=== PATIENT | male | born 1950 | race Caucasian/White ===

== ENCOUNTER 2019-02-24 20:26 | Inpatient (IN) ==
[2019-02-24] MEDS ORDERED: Ondansetron 4 MG/2 ML VIAL IVP PRN (23:42)
[2019-02-24] MEDS ORDERED: Acetaminophen 325 MG TABLET PO PRN (23:42)
[2019-02-24] MEDS ORDERED: Naloxone 0.4 MG/ML INJ IVP PRN (23:42)
[2019-02-24] MEDS ORDERED: DilTIAZem 50 MG in 0.9 % Sodium Chloride 40 ML IVC SCH (23:45)
[2019-02-24] MEDS ORDERED: *HR* Heparin 5,000 UNIT/ML VIAL IVP PRN ×2 (23:48)
[2019-02-24] MEDS ORDERED: *HR* Heparin 5,000 UNIT/ML VIAL IVP ONE (23:48)
[2019-02-25] MEDS ORDERED: 0.9 % Sodium Chloride 1,000 ML IVC ONE (00:42)
[2019-02-25 01:12] LABS: Basophils % 0.6 %; Hemoglobin 11.8 g/dL (12.9-16.9); Immature Granulocytes % 0.4 % (0-4); Lymphocytes # 3.3 K/mcL (0.6-4.6); Lymphocytes % 46.2 %; Mean Corpuscular HGB Conc 32.8 g/dL (31.6-35.5); Mean Corpuscular Hemoglobin 30.5 pg (28.0-33.3); Mean Platelet Volume 9.2 fL (9.4-12.4); Monocytes # 0.4 K/mcL (0.0-1.3); Monocytes % 5.3 %; Neutrophils # 3.4 K/mcL (1.6-8.9); Platelet Count 194 K/mcL (140-400); Red Blood Count 3.87 M/mcL (4.19-5.50); Red Cell Distribution Width 12.5 % (11.5-14.5); Segmented Neutrophils % 47.5 %; White Blood Count 7.1 K/mcL (4.3-11.1)
[2019-02-25 01:25] LABS: Heparin anti-factor XA UFH 0.01 IU/mL (0.30-0.70); INR 1.2; Prothrombin Time 13.1 Seconds (9.4-12.1)
[2019-02-25 01:27] LABS: BUN/Creatinine Ratio 24 (6-26); Blood Urea Nitrogen 24 mg/dL (8-23); Carbon Dioxide 20 mEq/L (23-29); Chloride 105 mEq/L (98-107); Chol/HDL Ratio 6.8 (0-4.9); Cholesterol 115 mg/dL (< 200); Glucose 112 mg/dL (70-105); HDL Cholesterol 17 mg/dL (40-59); LDL Cholesterol,Calculated 41 mg/dL (0-99); Magnesium 1.7 mg/dL (1.6-2.6); Osmolality,Calculated 285 (280-300); Potassium 3.3 mEq/L (3.5-5.1); Sodium 135 mEq/L (136-145); Triglycerides 287 mg/dL (< 150); eGFR For African Americans > 60 (> 60); eGFR For Non-African Americans > 60 (> 60)
[2019-02-25] MEDS: 0.9 % Sodium Chloride 1,000 ML IVC SCH ×2 (01:44→12:45)
[2019-02-25] MEDS: Heparin 25,000 UNIT/250 ML D5W 25,000 UNIT/250 ML IV.SOLN IVC SCH ×2 (01:44→23:35)
[2019-02-25 02:08] LABS: Platelet Estimate Normal (Normal); Reactive Lymphocytes Present (Not Present)
[2019-02-25] MEDS: Doxycycline 100 MG in 0.9 % Sodium Chloride Mini Bag 100 ML IVPB SCH ×2 (06:37→15:50)
[2019-02-25 07:57] LABS: Bilirubin,Urine Negative (Negative); Blood,Urine Negative (Negative); Clarity,Urine Clear (Clear); Color,Urine Yellow (Yellow); Glucose,Urine (UA) Normal (Normal); Ketones,Urine 15 mg/dL (Negative); Leukocyte Esterase,Urine Negative (Negative); Nitrite,Urine Negative (Negative); PH,Urine 5.5 pH Units (5.0-8.0); Protein,Urine Trace mg/dL (Neg-Trace); Specific Gravity,Urine 1.028 (1.010-1.025); Urobilinogen,Urine Normal (Normal)
[2019-02-25] MEDS: cefTRIAXone 1,000 MG in Water for inj. (sterile) 10 ML IVP SCH (08:30)
[2019-02-25 08:37] LABS: Troponin I 0.25 ng/mL (< 0.04)
[2019-02-25 10:12] LABS: Thyroid Stimulating Hormone 1.054 mcIU/mL (0.340-5.600)
[2019-02-25] MEDS: *HR* HYDROcodone/Acet 5/325 mg TABLET PO PRN ×2 (14:00→20:20)
[2019-02-25] MEDS: Nicotine 7 MG PATCH.TD24 TD SCH (20:20)
[2019-02-25] MEDS: Metoprolol 100 MG TABLET PO SCH (20:20)
[2019-02-26] MEDS: Doxycycline 100 MG in 0.9 % Sodium Chloride Mini Bag 100 ML IVPB SCH ×2 (05:48→17:02)
[2019-02-26 06:00] LABS: Basophils % 0.3 %; Eosinophils # 0.1 K/mcL (0.0-0.6); Hematocrit 26.3 % (37.5-50.1); Immature Granulocytes % 0.3 % (0-4); Lymphocytes # 4.1 K/mcL (0.6-4.6); Lymphocytes % 65.1 %; Mean Corpuscular HGB Conc 32.3 g/dL (31.6-35.5); Mean Corpuscular Hemoglobin 30.9 pg (28.0-33.3); Mean Corpuscular Volume 95.6 fL (83.0-100.0); Mean Platelet Volume 9.1 fL (9.4-12.4); Monocytes # 0.4 K/mcL (0.0-1.3); Monocytes % 6.5 %; Neutrophils # 1.7 K/mcL (1.6-8.9); Platelet Count 175 K/mcL (140-400); Red Blood Count 2.75 M/mcL (4.19-5.50); Segmented Neutrophils % 26.8 %; White Blood Count 6.3 K/mcL (4.3-11.1)
[2019-02-26 06:03] LABS: Hemoglobin 8.5 g/dL (12.9-16.9)
[2019-02-26 06:12] LABS: BUN/Creatinine Ratio 34 (6-26); Blood Urea Nitrogen 26 mg/dL (8-23); Calcium 7.9 mg/dL (8.6-10.3); Carbon Dioxide 23 mEq/L (23-29); Chloride 106 mEq/L (98-107); Glucose 105 mg/dL (70-105); Magnesium 1.9 mg/dL (1.6-2.6); Osmolality,Calculated 285 (280-300); Potassium 4.1 mEq/L (3.5-5.1); Sodium 135 mEq/L (136-145); eGFR For African Americans > 60 (> 60); eGFR For Non-African Americans > 60 (> 60)
[2019-02-26 06:19] LABS: Platelet Estimate Normal (Normal); Reactive Lymphocytes Present (Not Present)
[2019-02-26] MEDS: Metoprolol 100 MG TABLET PO SCH ×2 (07:40→22:01)
[2019-02-26] MEDS: Nicotine 7 MG PATCH.TD24 TD SCH (07:40)
[2019-02-26] MEDS: cefTRIAXone 1,000 MG in Water for inj. (sterile) 10 ML IVP SCH (07:41)
[2019-02-26] MEDS ORDERED: 0.9 % Sodium Chloride 250 ML ONE (12:24)
[2019-02-26] MEDS ORDERED: 0.9 % Sodium Chloride 500 ML ONE (12:25)
[2019-02-26] MEDS: Pantoprazole 40 MG in 0.9 % Sodium Chloride Mini Bag 100 ML IVC SCH ×3 (12:56→22:32)
[2019-02-26] MEDS ORDERED: Isovue-370 500 ML BOTTLE IVP ONE (13:48)
[2019-02-26] MEDS: *HR* HYDROcodone/Acet 5/325 mg TABLET PO PRN ×2 (15:25→22:00)
[2019-02-26] MEDS ORDERED: SODIUM CHLORIDE/NAHCO3/KCL/PEG 4,000 ML SOLN.RECON PO ONE (17:00)
[2019-02-26] MEDS ORDERED: Pantoprazole 40 MG VIAL IVP SCH (18:00)
[2019-02-26] MEDS: MetroNIDAZOLE 500 MG/100 ML 500 MG/100 ML BAG IVPB SCH ×2 (18:49→23:57)
[2019-02-26 20:50] LABS: Hematocrit 31.8 % (37.5-50.1)
[2019-02-26 20:52] LABS: Hemoglobin 10.5 g/dL (12.9-16.9)
[2019-02-27] MEDS: Pantoprazole 40 MG in 0.9 % Sodium Chloride Mini Bag 100 ML IVC SCH ×2 (03:45→10:34)
[2019-02-27 04:09] LABS: Alanine Aminotransferase 59 Units/L (7-52); Albumin 3.2 g/dL (3.5-5.7); Albumin/Globulin Ratio 1.4 (1.1-2.2); Alkaline Phosphatase 104 Units/L (34-104); Aspartate Amino Transferase 64 Units/L (13-39); Bilirubin,Total 0.4 mg/dL (0.3-1.0); Blood Urea Nitrogen 16 mg/dL (8-23); Calcium 8.4 mg/dL (8.6-10.3); Carbon Dioxide 24 mEq/L (23-29); Chloride 109 mEq/L (98-107); Globulin 2.3 g/dL (2.4-3.5); Glucose 92 mg/dL (70-105); Magnesium 1.8 mg/dL (1.6-2.6); Osmolality,Calculated 289 (280-300); Sodium 139 mEq/L (136-145); Total Protein 5.5 g/dL (6.4-8.9)
[2019-02-27 04:24] LABS: BUN/Creatinine Ratio 19 (6-26); eGFR For African Americans > 60 (> 60); eGFR For Non-African Americans > 60 (> 60)
[2019-02-27 05:19] LABS: Basophils % 0.3 %; Eosinophils # 0.2 K/mcL (0.0-0.6); Eosinophils % 2.5 %; Hematocrit 31.5 % (37.5-50.1); Hemoglobin 10.3 g/dL (12.9-16.9); Immature Granulocytes % 0.3 % (0-4); Lymphocytes # 4.7 K/mcL (0.6-4.6); Lymphocytes % 72.1 %; Mean Corpuscular HGB Conc 32.7 g/dL (31.6-35.5); Mean Corpuscular Hemoglobin 30.2 pg (28.0-33.3); Mean Corpuscular Volume 92.4 fL (83.0-100.0); Mean Platelet Volume 9.1 fL (9.4-12.4); Monocytes # 0.4 K/mcL (0.0-1.3); Monocytes % 6.4 %; Neutrophils # 1.2 K/mcL (1.6-8.9); Platelet Count 162 K/mcL (140-400); Red Blood Count 3.41 M/mcL (4.19-5.50); Red Cell Distribution Width 14.5 % (11.5-14.5); Segmented Neutrophils % 18.4 %; White Blood Count 6.5 K/mcL (4.3-11.1)
[2019-02-27 05:51] LABS: Platelet Estimate Normal (Normal); Reactive Lymphocytes Present (Not Present); Smudge Cells Present (Not Present)
[2019-02-27] MEDS: MetroNIDAZOLE 500 MG/100 ML 500 MG/100 ML BAG IVPB SCH ×3 (05:58→17:02)
[2019-02-27] MEDS: Doxycycline 100 MG in 0.9 % Sodium Chloride Mini Bag 100 ML IVPB SCH (05:58)
[2019-02-27 10:02] LABS: Hematocrit 30.9 % (37.5-50.1); Hemoglobin 10.2 g/dL (12.9-16.9)
[2019-02-27] MEDS: Nicotine 7 MG PATCH.TD24 TD SCH (11:36)
[2019-02-27] MEDS: cefTRIAXone 1,000 MG in Water for inj. (sterile) 10 ML IVP SCH (11:37)
[2019-02-27] MEDS: Metoprolol 100 MG TABLET PO SCH ×2 (11:37→20:31)
[2019-02-27 15:07] LABS: Hematocrit 31.5 % (37.5-50.1); Hemoglobin 10.5 g/dL (12.9-16.9)
[2019-02-27] MEDS: levoFLOXacin 750 MG/150 ML 750 MG/150 ML BAG IVPB SCH (15:19)
[2019-02-27] MEDS: *HR* HYDROcodone/Acet 5/325 mg TABLET PO PRN (17:07)
[2019-02-27 22:34] LABS: Hematocrit 29.4 % (37.5-50.1); Hemoglobin 9.5 g/dL (12.9-16.9)
[2019-02-28] MEDS: MetroNIDAZOLE 500 MG/100 ML 500 MG/100 ML BAG IVPB SCH ×4 (00:23→20:17)
[2019-02-28 03:57] LABS: Basophils % 0.4 %; Eosinophils # 0.3 K/mcL (0.0-0.6); Eosinophils % 4.6 %; Hematocrit 29.9 % (37.5-50.1); Immature Granulocytes % 0.1 % (0-4); Lymphocytes # 4.9 K/mcL (0.6-4.6); Lymphocytes % 70.7 %; Mean Corpuscular HGB Conc 33.4 g/dL (31.6-35.5); Mean Corpuscular Hemoglobin 31.1 pg (28.0-33.3); Mean Corpuscular Volume 92.9 fL (83.0-100.0); Mean Platelet Volume 9.1 fL (9.4-12.4); Monocytes # 0.3 K/mcL (0.0-1.3); Monocytes % 4.6 %; Neutrophils # 1.4 K/mcL (1.6-8.9); Platelet Count 201 K/mcL (140-400); Red Blood Count 3.22 M/mcL (4.19-5.50); Red Cell Distribution Width 14.3 % (11.5-14.5); Segmented Neutrophils % 19.6 %; White Blood Count 6.9 K/mcL (4.3-11.1)
[2019-02-28 04:08] LABS: Prothrombin Time 11.7 Seconds (9.4-12.1)
[2019-02-28 04:16] LABS: Alanine Aminotransferase 101 Units/L (7-52); Albumin 3.1 g/dL (3.5-5.7); Albumin/Globulin Ratio 1.5 (1.1-2.2); Alkaline Phosphatase 124 Units/L (34-104); Aspartate Amino Transferase 110 Units/L (13-39); BUN/Creatinine Ratio 16 (6-26); Bilirubin,Total 0.2 mg/dL (0.3-1.0); Blood Urea Nitrogen 15 mg/dL (8-23); Calcium 8.3 mg/dL (8.6-10.3); Carbon Dioxide 27 mEq/L (23-29); Chloride 108 mEq/L (98-107); Globulin 2.1 g/dL (2.4-3.5); Glucose 150 mg/dL (70-105); Magnesium 1.8 mg/dL (1.6-2.6); Osmolality,Calculated 296 (280-300); Potassium 3.8 mEq/L (3.5-5.1); Sodium 141 mEq/L (136-145); Total Protein 5.2 g/dL (6.4-8.9); eGFR For African Americans > 60 (> 60); eGFR For Non-African Americans > 60 (> 60)
[2019-02-28 04:49] LABS: Platelet Estimate Normal (Normal); Reactive Lymphocytes Present (Not Present)
[2019-02-28] MEDS: levoFLOXacin 750 MG/150 ML 750 MG/150 ML BAG IVPB SCH (09:30)
[2019-02-28] MEDS: Nicotine 7 MG PATCH.TD24 TD SCH (09:31)
[2019-02-28] MEDS: Metoprolol 100 MG TABLET PO SCH ×2 (09:31→20:18)
[2019-02-28] MEDS ORDERED: *HR* HYDROcodone/Acet 5/325 mg TABLET PO PRN (09:58)
[2019-02-28] MEDS ORDERED: Nitroglycerin 0.4 MG TAB.SUBL SL PRN (09:58)
[2019-02-28 12:04] LABS: Hematocrit 32.8 % (37.5-50.1); Hemoglobin 10.9 g/dL (12.9-16.9)
[2019-02-28 12:25] LABS: Albumin 3.4 g/dL (3.5-5.7); Albumin/Globulin Ratio 1.4 (1.1-2.2); Bilirubin,Direct 0.1 mg/dL (0.0-0.2); Bilirubin,Indirect 0.2 mg/dL (0.0-1.2); Bilirubin,Total 0.3 mg/dL (0.3-1.0); Globulin 2.4 g/dL (2.4-3.5); Total Protein 5.8 g/dL (6.4-8.9)
[2019-02-28 12:54] LABS: Hepatitis B Surface Antigen Nonreactive (Nonreactive)
[2019-02-28 13:23] LABS: Hepatitis B Core IgM Nonreactive (Nonreactive); Hepatitis C Virus Antibody Nonreactive (Nonreactive)
[2019-02-28 13:25] LABS: Hepatitis A Antibody IgM Nonreactive (Nonreactive)
[2019-02-28] MEDS: Carbidopa/Levodopa 25/100 TABLET PO SCH ×3 (15:07→20:17)
[2019-02-28] MEDS: Famotidine 20 MG TABLET PO SCH (20:18)
[2019-02-28] MEDS ORDERED: Metoprolol 100 MG TABLET PO SCH (21:00)
[2019-02-28] MEDS ORDERED: QUEtiapine Fumarate 25 MG TABLET PO SCH (21:00)
[2019-03-01] MEDS: MetroNIDAZOLE 500 MG/100 ML 500 MG/100 ML BAG IVPB SCH ×2 (00:54→06:06)
[2019-03-01 07:36] VITALS: BP 135/73
[2019-03-01 07:49] LABS: Hematocrit 30.1 % (37.5-50.1); Hemoglobin 10.1 g/dL (12.9-16.9); Mean Corpuscular HGB Conc 33.6 g/dL (31.6-35.5); Mean Corpuscular Hemoglobin 30.7 pg (28.0-33.3); Mean Corpuscular Volume 91.5 fL (83.0-100.0); Mean Platelet Volume 9.1 fL (9.4-12.4); Platelet Count 224 K/mcL (140-400); Red Blood Count 3.29 M/mcL (4.19-5.50); White Blood Count 8.1 K/mcL (4.3-11.1)
[2019-03-01 08:09] LABS: Alanine Aminotransferase 104 Units/L (7-52); Albumin 3.1 g/dL (3.5-5.7); Albumin/Globulin Ratio 1.2 (1.1-2.2); Alkaline Phosphatase 133 Units/L (34-104); Aspartate Amino Transferase 98 Units/L (13-39); BUN/Creatinine Ratio 12 (6-26); Bilirubin,Total 0.3 mg/dL (0.3-1.0); Blood Urea Nitrogen 12 mg/dL (8-23); Calcium 8.5 mg/dL (8.6-10.3); Carbon Dioxide 26 mEq/L (23-29); Chloride 108 mEq/L (98-107); Globulin 2.6 g/dL (2.4-3.5); Glucose 98 mg/dL (70-105); Osmolality,Calculated 294 (280-300); Potassium 4.1 mEq/L (3.5-5.1); Sodium 142 mEq/L (136-145); Total Protein 5.7 g/dL (6.4-8.9); eGFR For African Americans > 60 (> 60); eGFR For Non-African Americans > 60 (> 60)
[2019-03-01] MEDS ORDERED: ROTIGOTINE TP SCH (09:00)
[2019-03-01] MEDS ORDERED: Isosorbide MONOnitrate (24 HR) 30 MG TAB.ER.24H PO SCH (09:00)
[2019-03-01] MEDS: Nicotine 7 MG PATCH.TD24 TD SCH (09:28)
[2019-03-01] MEDS: Metoprolol 100 MG TABLET PO SCH (09:29)
[2019-03-01] MEDS: Carbidopa/Levodopa 25/100 TABLET PO SCH (09:29)
[2019-03-01] MEDS: Famotidine 20 MG TABLET PO SCH (09:29)
[2019-03-01] MEDS: levoFLOXacin 750 MG/150 ML 750 MG/150 ML BAG IVPB SCH (09:30)
== END 2019-03-01 12:53 | disposition home or self-care (01) | DRG 871 ==
LOC: 2NENU → SUATTDRO 21:48
PROVIDERS: ADMIT Pediatrics; ATTEND Internal Medicine
PROC: ENDOCCB (2019-02-27 08:00)

== ENCOUNTER 2019-06-16 06:08 | Inpatient (IN) ==
[2019-06-16] MEDS ORDERED: 0.9 % Sodium Chloride 1,000 ML IVC SCH (06:30)
[2019-06-16 06:56] LABS: Basophils % 0.7 %; Eosinophils # 0.3 K/mcL (0.0-0.6); Eosinophils % 5.2 %; Hematocrit 38.2 % (37.5-50.1); Hemoglobin 13.1 g/dL (12.9-16.9); Immature Granulocytes % 0.4 % (0-4); Lymphocytes # 2.1 K/mcL (0.6-4.6); Lymphocytes % 38.5 %; Mean Corpuscular HGB Conc 34.3 g/dL (31.6-35.5); Mean Corpuscular Volume 90.3 fL (83.0-100.0); Mean Platelet Volume 8.6 fL (9.4-12.4); Monocytes # 0.5 K/mcL (0.0-1.3); Monocytes % 8.1 %; Neutrophils # 2.6 K/mcL (1.6-8.9); Platelet Count 245 K/mcL (140-400); Red Blood Count 4.23 M/mcL (4.19-5.50); Red Cell Distribution Width 13.2 % (11.5-14.5); Segmented Neutrophils % 47.1 %; White Blood Count 5.5 K/mcL (4.3-11.1)
[2019-06-16 07:05] LABS: INR 1.1
[2019-06-16 07:16] LABS: BUN/Creatinine Ratio 14 (6-26); Blood Urea Nitrogen 15 mg/dL (8-23); Calcium 9.7 mg/dL (8.6-10.3); Carbon Dioxide 27 mEq/L (23-29); Chloride 104 mEq/L (98-107); Glucose 105 mg/dL (70-105); Osmolality,Calculated 289 (280-300); Potassium 3.9 mEq/L (3.5-5.1); Sodium 139 mEq/L (136-145); eGFR For African Americans > 60 (> 60); eGFR For Non-African Americans > 60 (> 60)
[2019-06-16] MEDS ORDERED: *HR* Promethazine 25 MG/ML VIAL IVP PRN (08:02)
[2019-06-16] MEDS ORDERED: traMADol 50 MG TABLET PO PRN (08:02)
[2019-06-16] MEDS ORDERED: Ringers Solution, Lactated 1,000 ML IVC SCH (08:15)
[2019-06-16] MEDS ORDERED: Naloxone 0.4 MG/ML INJ IVP PRN (09:50)
[2019-06-16] MEDS ORDERED: Acetaminophen 325 MG TABLET PO PRN (09:50)
[2019-06-16] MEDS ORDERED: Nitroglycerin 0.4 MG TAB.SUBL SL PRN (09:55)
[2019-06-16] MEDS ORDERED: Famotidine 20 MG TABLET PO PRN (09:55)
[2019-06-16] MEDS ORDERED: Diphenoxylate/Atropine 1 TAB TABLET PO PRN (09:55)
[2019-06-16] MEDS: *HR* HYDROcodone/Acet 10/325 mg TABLET PO PRN (13:33)
[2019-06-16] MEDS: Aspirin Enteric Coated 81 MG Tablet PO SCH (14:48)
[2019-06-16] MEDS: Carbidopa/Levodopa 25/100 TABLET PO SCH ×3 (14:48→19:40)
[2019-06-16] MEDS: Apixaban 5 MG TABLET PO SCH (19:40)
[2019-06-16] MEDS: Metoprolol 100 MG TABLET PO SCH (19:40)
[2019-06-17] MEDS: *HR* HYDROcodone/Acet 10/325 mg TABLET PO PRN (00:01)
[2019-06-17] MEDS: Carbidopa/Levodopa 25/100 TABLET PO SCH (06:00)
[2019-06-17 08:28] LABS: Basophils % 0.3 %; Eosinophils # 0.1 K/mcL (0.0-0.6); Eosinophils % 0.8 %; Hematocrit 35.7 % (37.5-50.1); Immature Granulocytes % 0.3 % (0-4); Lymphocytes # 2.4 K/mcL (0.6-4.6); Lymphocytes % 38.1 %; Mean Corpuscular HGB Conc 33.6 g/dL (31.6-35.5); Mean Corpuscular Hemoglobin 30.4 pg (28.0-33.3); Mean Corpuscular Volume 90.4 fL (83.0-100.0); Mean Platelet Volume 8.6 fL (9.4-12.4); Monocytes # 0.5 K/mcL (0.0-1.3); Monocytes % 7.6 %; Neutrophils # 3.3 K/mcL (1.6-8.9); Platelet Count 215 K/mcL (140-400); Red Blood Count 3.95 M/mcL (4.19-5.50); Segmented Neutrophils % 52.9 %; White Blood Count 6.3 K/mcL (4.3-11.1)
[2019-06-17 08:46] LABS: BUN/Creatinine Ratio 16 (6-26); Blood Urea Nitrogen 16 mg/dL (8-23); Calcium 9.3 mg/dL (8.6-10.3); Carbon Dioxide 30 mEq/L (23-29); Chloride 103 mEq/L (98-107); Glucose 96 mg/dL (70-105); Osmolality,Calculated 287 (280-300); Potassium 4.4 mEq/L (3.5-5.1); Sodium 138 mEq/L (136-145); eGFR For African Americans > 60 (> 60); eGFR For Non-African Americans > 60 (> 60)
[2019-06-17] MEDS ORDERED: Isosorbide MONOnitrate (24 HR) 30 MG TAB.ER.24H PO SCH (09:00)
[2019-06-17] MEDS ORDERED: ROTIGOTINE TP SCH (09:00)
[2019-06-17] MEDS: Apixaban 5 MG TABLET PO SCH (09:19)
[2019-06-17] MEDS: Aspirin Enteric Coated 81 MG Tablet PO SCH (09:19)
[2019-06-17] MEDS: Metoprolol 100 MG TABLET PO SCH (09:19)
[2019-06-17 09:31] VITALS: BP 117/71
[2019-06-17] MEDS ORDERED: *HR* Rocuronium Bromide 50 MG/5 ML VIAL IVC ONE (10:59)
[2019-06-17] MEDS ORDERED: *HR* Etomidate 20 MG/10 ML AMPUL IVP ONE (10:59)
[2019-06-17] MEDS ORDERED: Ondansetron 4 MG/2 ML VIAL IVP ONE (10:59)
[2019-06-17] MEDS ORDERED: EPHEDrine 50 MG/ML VIAL IVP ONE (10:59)
[2019-06-17] MEDS ORDERED: *HR* Phenylephrine 10 MG/ML VIAL IVC ONE (10:59)
== END 2019-06-17 11:00 | disposition home or self-care (01) | DRG 274 ==
LOC: 2NNU 06:08 → ICNU 06:26
PROVIDERS: ADMIT Internal Medicine Cardiovascular Disease; ATTEND Internal Medicine Cardiovascular Disease